=== PATIENT | male | born 1990 | race Caucasian/White ===

== ENCOUNTER 2018-01-18 16:18 | Emergency (ER) | payer OTHER, SELFPAY ==
[2018-01-18 16:43] VITALS: BP 146/83; PULSE 88; RESP 14; TEMP 37.2; O2SAT 98; BMI 25.6
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
[2018-01-18 19:22] VITALS: BP 132/65; PULSE 83; RESP 17; O2SAT 98
== END 2018-01-18 19:34 | disposition home or self-care (01) ==
PROVIDERS: Emergency Provider Nurse Practitioner Family
DX: S80.01XA Contusion of right knee, initial encounter (principal); W20.8XXA Other cause of strike by thrown, projected or falling object, initial encounter; Y99.0 Civilian activity done for income or pay
CPT/HCPCS: 73562; 99282; 99283